=== PATIENT | female | born 1970 | race Caucasian/White ===

== ENCOUNTER → 2018-08-17 | Outpatient (CLI) | payer MEDICAID ==
[~2018-08-17] MED LIST: ACHD5005 PO; BENADRYL; BETA15OI TP; CETI10TA17 PO; CLNZ.5T PO; CLON0.5T3 PO; DESO60OI5 TOP; DIPH25CA6 PO; DOXY100C2 PO; ESCI10TA48 PO; ESCI20TA38 PO; FAMO20TA5 PO; FLUO118.6 TOP; HYDR50CA3 PO; MELA1TAB27 PO; METR500T PO; MODA200T34 PO; MULT-974 PO; MUPI22OI29 TOP; PANT20TA2 PO; PANT40TA PO; PRD20T PO; PRED5TAB PO; PROP20TA5 PO; SUCR1TAB PO; SUCR1TAB23 PO; SULF1TAB38 PO
--- NOTE | 2018-08-20 09:03 | Diagnostic Imaging Report ---
Indication: Routine screening. No prior mammograms are available for comparison. This is a baseline study. 2-D and 3-D bilateral screening mammography was performed with CAD. Scattered fibroglandular densities are identified bilaterally. Benign calcifications in inferior right breast are noted. No dominant mass or malignant appearing microcalcifications are seen. There is an asymmetric density in the superior right breast posterior depth only seen on MLO view. Additional views are recommended. Left breast is unremarkable. Axillae are unremarkable. Impression: BI-RADS 0 Right breast density, likely superimposed fibroglandular tissue. Even so, additional views are recommended for further evaluation. ACR BI-RADS Category 0: Incomplete. (Needs additional imaging evaluation). Result letter will be mailed to the patient. Note: At least 10% of breast cancer is not imaged by mammography. Dictated by: Dictated on workstation # [id number]
== END ==
LOC: RAD 11:13
PROVIDERS: ATTEND Internal Medicine
DX: Z12.31 Encounter for screening mammogram for malignant neoplasm of breast (principal); R92.8 Other abnormal and inconclusive findings on diagnostic imaging of breast
CPT/HCPCS: 77067

== ENCOUNTER → 2018-09-12 | Outpatient (CLI) | payer MEDICAID ==
--- NOTE | 2018-09-12 19:22 | Diagnostic Imaging Report ---
INDICATION: Right breast density. Patient presents for additional views. Correlation is made with recent screening study from 08/17/2018. 2-D and 3-D unilateral right diagnostic mammography was performed with computer-aided Detection (CAD) system. This included spot compression MLO and 90-degree lateral view. FINDINGS: Additional views show no evidence of discrete mass. Area of density noted on recent screening study shows normal dispersion and most likely represented superimposed tissue. No suspicious calcifications are seen. IMPRESSION: Additional views fail to demonstrate a discrete mass. The patient may return to routine annual screening mammography. ACR BI-RADS Category 1: Negative. Result letter will be mailed to the patient. Note: At least 10% of breast cancer is not imaged by mammography. Dictated by: Dictated on workstation # [id number]
== END ==
LOC: RAD 12:47
PROVIDERS: ATTEND Internal Medicine
DX: R92.2 Inconclusive mammogram (principal)

== ENCOUNTER → 2019-10-08 | Outpatient (CLI) | payer MEDICAID ==
--- NOTE | 2019-10-08 12:55 | Diagnostic Imaging Report ---
INDICATION: Routine screening. COMPARISON: 08/17/2018. TECHNIQUE: 2D and 3D bilateral screening mammography was performed with CAD. FINDINGS: Scattered fibroglandular densities are identified bilaterally. The parenchymal pattern is stable. No mass or malignant appearing microcalcifications are seen. Benign calcifications are noted. The axillae are unremarkable. IMPRESSION: No mammographic features suspicious for malignancy are identified. ACR BI-RADS Category 2: Benign findings. Result letter will be mailed to the patient. Note: At least 10% of breast cancer is not imaged by mammography. Dictated by: Dictated on workstation # [id number]
== END ==
LOC: RAD 09:27
PROVIDERS: ATTEND Internal Medicine
DX: Z12.31 Encounter for screening mammogram for malignant neoplasm of breast (principal)
CPT/HCPCS: 77067

== ENCOUNTER → 2021-03-18 | Outpatient (CLI) | payer MEDICAID ==
--- NOTE | 2021-03-18 15:59 | Diagnostic Imaging Report ---
INDICATION: Routine screening. COMPARISON: Prior mammograms from 10/08/2019 and 08/17/2018. EXAMINATION: 2D and 3D bilateral screening mammography was performed with CAD. The current study was also evaluated with a Computer Aided Detection (CAD) system. FINDINGS: Scattered fibroglandular densities are identified, bilaterally. No mass or malignant appearing microcalcifications are seen. Axillae are unremarkable. IMPRESSION: No mammographic feature suspicious for malignancy is identified. ACR BI-RADS Category 1: Negative. Result letter will be mailed to the patient. Note: At least 10% of breast cancer is not imaged by mammography. Dictated by: Dictated on workstation # [id number]
== END ==
LOC: RAD 15:00
PROVIDERS: ATTEND Internal Medicine
DX: Z12.31 Encounter for screening mammogram for malignant neoplasm of breast (principal)
CPT/HCPCS: 77063; 77067